=== PATIENT | female | born 1990 | race Caucasian/White ===

== ENCOUNTER 2016-10-27 22:09 | Emergency (ER) | payer OTHER ==
--- NOTE | 2016-10-27 22:48 | ER Document Report ---
ED General - General Mode of Arrival: Ambulatory Information source: Patient TRAVEL OUTSIDE OF THE [place] IN LAST 30 DAYS: No - HPI Onset: Other - Refer to HPI notes Associated symptoms: Fever, Other Similar symptoms previously: No Recently seen / treated by doctor: No <ODIN DE OLIVEIRA - Last Filed: 10/27/16 23:09> <ESTEBANROBSON - Last Filed: 10/28/16 00:46> - General Chief Complaint: Fever Stated Complaint: FEVER Time Seen by Provider: 10/27/16 22:58 Notes: Patient is a 26-year-old female presents emergency department for fever. Patient states she had multiple symptoms this week starting on Monday with a migraine. Patient has a history of migraines and this migraine was gone by Monday evening. patient states on Monday she had some nausea with vomiting and some diarrhea. On Monday patient states she felt okay have relate Monday night and possibly early morning she felt feverish but did not take her temperature. Patient took her temperature morning and had a temperature of 101.9 F. Patient states she has also had some aches and pains in her joints. Patient states is mostly in her knees and hip. Patient also states her pulse has been elevated and has been fluctuating a lot today. Been alternating with Motrin and Tylenol for her fever and joint aches. Patient last took Motrin at 1500 today and she last took Tylenol at 21:00. Patient states she is allergic to penicillin and cefazolin. Patient lives in [place] with her and is visiting her family who lives here. Patient has a history of migraines and asthma; she has had her wisdom teeth removed and had a labrum repair on her right hip in 2004. (ODIN DE OLIVEIRA) - Related Data Allergies/Adverse Reactions: Penicillins Allergy (Verified 10/27/16 23:56) sufentanil Allergy (Verified 10/27/16 23:56) Home Medications: Current Home Medications Albuterol Sulfate [Albuterol Sulfate 2.5mg/3 mL] 1 vial IH Q4 PRN 10/27/16 [ History] Past Medical History - General Information source: Patient - Social History Smoking Status: Never Smoker Cigarette use (# per day): No Chew tobacco use (# tins/day): No Smoking Education Provided: No Frequency of alcohol use: None Drug Abuse: None Family History: None Patient has suicidal ideation: No Patient has homicidal ideation: No Pulmonary Medical History: Reports: Hx Asthma Neurological Medical History: Reports: Hx Migraine Past Surgical History: Reports: Hx Oral Surgery - [place] teeth, Hx Orthopedic Surgery - Labrum repair to the right hip 2004 <ODIN DE OLIVEIRA - Last Filed: 10/27/16 23:09> Review of Systems - Review of Systems Constitutional: See HPI, Fever EENT: No symptoms reported Cardiovascular: See HPI, Heart racing Respiratory: No symptoms reported. denies: Cough Gastrointestinal: See HPI, Diarrhea, Nausea, Vomiting Genitourinary: No symptoms reported Female Genitourinary: No symptoms reported Musculoskeletal: See HPI, Joint pain Skin: No symptoms reported Hematologic/Lymphatic: No symptoms reported Neurological/Psychological: See HPI, Headaches -: Yes All other systems reviewed and negative <ODIN DE OLIVEIRA - Last Filed: 10/27/16 23:09> Physical Exam - Vital signs Interpretation: Tachycardic, Febrile <ODIN DE OLIVEIRA - Last Filed: 10/27/16 23:09> <ROBSON ORELLANA - Last Filed: 10/28/16 00:46> - Vital signs Vitals: Temp Pulse Resp BP Pulse Ox 100.4 F 115 H 20 124/88 H 97 10/27/16 22:14 10/27/16 22:14 10/27/16 22:14 10/27/16 22:14 10/27/16 22:14 - Notes Notes: GENERAL: Alert, interacts well. No acute distress. HEAD: Normocephalic, atraumatic. EYES: Appear normal. Pupils equal, round, and reactive to light. ENT: Moist mucus membranes, tongue midline. Oropharynx is normal no erythema. Nares patent, no nasal septal hematoma, TM's intacts. NECK: Full range of motion. Supple. Able to touch chin to chest without pain. Trachea midline. LUNGS: Clear to auscultation bilaterally, no wheezes, rales, or rhonchi. No respiratory distress. HEART: Tachycardia. Regular rhythm. No murmurs, gallops, or rubs. ABDOMEN: Soft, non-tender. Non-distended. Normal bowel sounds. EXTREMITIES: Moves all 4 extremities spontaneously. Normal strength. No edema. NEUROLOGICAL: Alert and oriented x3. Normal speech. No focal neurological deficits. GSC 15. PSYCH: Normal affect, normal mood. SKIN: Warm, dry, normal turgor. No rashes or lesions noted. (ODIN DE OLIVEIRA) Course <ODIN DE OLIVEIRA - Last Filed: 10/27/16 23:09> - Laboratory Result Diagrams: 10/27/16 23:16 10/27/16 23:16 <ROBSON ORELLANA - Last Filed: 10/28/16 00:46> - Re-evaluation Re-evalutation: 10/28/16 00:43 The patient reports that the generalized achiness is feeling better since the Toradol. There is no nauseousness. The lab work fits a diagnosis of viral syndrome. (ROBSON ORELLANA) - Vital Signs Vital signs: Temp Pulse Resp BP Pulse Ox 99.7 F 115 H 18 112/71 100 10/28/16 00:20 10/27/16 22:14 10/28/16 00:01 10/28/16 00:01 10/28/16 00:01 - Laboratory Laboratory results interpreted by me: 10/27/16 10/27/16 23:16 23:16 Seg Neutrophils % 78.1 H Lymphocytes % 11.3 L ESR 24 H Urine Blood SMALL H Discharge <ODIN DE OLIVEIRA - Last Filed: 10/27/16 23:09> <ROBSON ORELLANA - Last Filed: 10/28/16 00:46> - Discharge Clinical Impression: Viral syndrome Condition: Stable Disposition: HOME, SELF-CARE Additional Instructions: Viral Syndrome: The physician has diagnosed a viral infection. Viruses not only cause "colds," but can cause many different symptoms including generalized aching, fever, headache, cough, diarrhea, nausea, vomiting, and fatigue. The treatment, for the most part, is simply relief of symptoms. This means that antibiotics are usually not given. Rest, fluids, pain medications and, occasionally, medication for the specific symptoms that are most bothersome will be prescribed. Use good handwashing to avoid passing the virus to others. Shared toys should be cleaned with disinfectant. Clean the toilets, sinks, and counter surfaces in bathrooms. Launder clothing in hot water. Contact the physician if you develop any new or unusual symptoms such as severe headache, stiff neck, high fever, chest pain, productive cough, or shortness of breath. You should be rechecked if you don't see marked improvement within seven to 10 days. TAKE TYLENOL EVERY 4 HOURS FOR FEVER AND MOTRIN EVERY 6 HOURS FOR JOINT PAINS IF NEEDED. DRINK PLENTY OF FLUIDS. GET PLENTY OF REST. FOLLOW UP WITH A LOCAL MEDICAL DOCTOR IF NOT IMPROVING. RETURN TO THE EMERGENCY ROOM IF ANY NEW OR WORSENING SYMPTOMS. Saraibe Attestation: 10/28/16 00:39 I personally performed the services described in the documentation, reviewed and edited the documentation which was dictated to the scribe in my presence, and it accurately records my words and actions. (ROBSON ORELLANA) Scribe Documentation - Scribe Written by Rukhsana:: Rukhsana Dia 10/27/2016 22:55 acting as scribe for :: Esteban <ODIN DE OLIVEIRA - Last Filed: 10/27/16 23:09>
[2016-10-27] MEDS ORDERED: NORMAL SALINE 1000 ML 1,000 ML IV ONE (23:03)
[2016-10-27] MEDS ORDERED: KETOROLAC TROMETHAMINE INJ/PF 30 MG/1 ML SDV IV ONE (23:03)
[2016-10-27 23:37] LABS: APPEARANCE,URINE CLEAR; BILIRUBIN,URINE NEGATIVE (NEGATIVE); GLUCOSE, URINE NEGATIVE (NEGATIVE); KETONES,URINE NEGATIVE (NEGATIVE); LEUKOCYTE ESTERASE,URINE NEGATIVE (NEGATIVE); NITRITE,URINE NEGATIVE (NEGATIVE); PROTEIN,URINE NEGATIVE (NEGATIVE); URINE SPECIFIC GRAVITY 1.004; UROBILINOGEN,URINE NEGATIVE mg/dL (<2.0)
[2016-10-27 23:38] LABS: ABSOLUTE LYMPHOCYTES (AUTO) 0.8 10^3/uL (0.5-4.7); ABSOLUTE MONOCYTES (AUTO) 0.7 10^3/uL (0.1-1.4); ABSOLUTE NEUT (AUTO) 5.7 10^3/uL (1.7-8.2); BASOPHILS % (AUTO) 0.3 % (0-2); EOSINOPHILS % (AUTO) 0.1 % (0-6); HEMOGLOBIN 12.4 g/dL (12.0-15.5); HGB HCT DIFFERENCE -0.8; LYMPHOCYTES % (AUTO) 11.3 % (13-45); MEAN CORPUSCULAR HEMOGLOBIN 29.1 pg (27.0-33.4); MEAN CORPUSCULAR HGB CONC 32.7 g/dL (32.0-36.0); MEAN CORPUSCULAR VOLUME 89 fl (80-97); MONOCYTES % (AUTO) 10.2 % (3-13); RED BLOOD COUNT 4.28 10^6/uL (3.72-5.28); RED CELL DISTRIBUTION WIDTH 12.4 % (11.5-14.0); SEGMENTED NEUTROPHILS % (AUTO) 78.1 % (42-78); WHITE BLOOD COUNT 7.3 10^3/uL (4.0-10.5)
[2016-10-27 23:51] LABS: ALANINE AMINOTRANSFERASE 27 U/L (9-52); ALBUMIN 4.3 g/dL (3.5-5.0); ALKALINE PHOSPHATASE 70 U/L (38-126); ANION GAP 13 (5-19); ASPARTATE AMINO TRANSFERASE 23 U/L (14-36); BILIRUBIN,DIRECT 0.3 mg/dL (0.0-0.4); BILIRUBIN,TOTAL 0.6 mg/dL (0.2-1.3); BLOOD UREA NITROGEN 9 mg/dL (7-20); CALCIUM 8.9 mg/dL (8.4-10.2); CARBON DIOXIDE 24 mmol/L (22-30); CHLORIDE 102 mmol/L (98-107); CREATININE RESULT 0.68 mg/dL (0.52-1.25); GLUCOSE 89 mg/dL (75-110); POTASSIUM 3.8 mmol/L (3.6-5.0); SODIUM 139.4 mmol/L (137-145); TOTAL PROTEIN 7.7 g/dL (6.3-8.2)
[2016-10-28 00:15] LABS: ERYTHROCYTE SEDIMENTATION RATE 24 mm/hr (0-20)
[2016-10-28 01:11] VITALS: BP 110/66
[2016-10-28] MEDS ORDERED: ACETAMINOPHEN 325 MG TABLET PO ONE (01:18)
== END 2016-10-28 01:20 | disposition home or self-care (01) ==
LOC: ER 22:09
DX: R50.9 Fever, unspecified (principal)
CPT/HCPCS: 99283; 96361; 96374; 36415; 87040; 84703; 85025; 85652; 80053; 81001; J1885; J7030